=== PATIENT | female | born 1970 | race Caucasian/White ===

== ENCOUNTER 2017-09-16 16:14 | Emergency (ER) | payer BC ==
[~2017-09-16] VITALS: Ht 162.6 cm; Wt 78.6 kg
[~2017-09-16 16:14] MED LIST: ASPIRIN325 MG PO; TRAMADOL HCL50 MG PO; ZANTAC75 M1 PO
[2017-09-16 16:55] LABS: HEMATOCRIT 38.2 % (36.0-46.0); HEMOGLOBIN 13.2 G/DL (11.9-15.5); MCH 31.9 PG (29.0-34.0); MCHC 34.6 G/DL (30.0-36.0); MCV 92.3 FL (83-99); RBC DIS.WIDTH-CV 12.4 % (11.8-14.6); RBC DIS.WIDTH-SD 42.2 % (39-53); RED BLOOD COUNT 4.14 M/uL (3.80-5.20); WHITE BLOOD COUNT 8.1 K/uL (4.1-10.2)
[2017-09-16 17:04] LABS: CHLORIDE 107 mEq/L (99-109); SODIUM 142 mEq/L (136-147)
[2017-09-16 17:06] LABS: GLUCOSE 89 mg/dL (70-99)
[2017-09-16 17:10] LABS: CREATININE 0.8 mg/dL (0.6-1.3); GFR ESTIMATE (CALCULATED) > 59 mL/min/
[2017-09-16 17:11] LABS: UREA NITROGEN (BUN) 11 mg/dL (9-23)
[2017-09-16 17:16] LABS: TROP-I INTERPRETATION NEGATIVE; TROPONIN-I < 0.01 ng/mL (0.0-0.30)
[2017-09-16 17:29] LABS: PLAT.SUFFICIENCY ADEQUATE; PLATELET COUNT 223 K/uL (156-360)
[2017-09-16 18:52] LABS: TOTAL BILIRUBIN 0.3 mg/dL (0.0-1.0)
[2017-09-16 18:53] LABS: ALKALINE PHOSPHATASE 113 IU/L (3-129)
[2017-09-16 18:56] LABS: ALT (GPT) 22 IU/L (3-49); AST (GOT) 17 IU/L (2-34); DIRECT BILIRUBIN 0.1 mg/dL (0.0-0.3)
[2017-09-16 18:57] LABS: LIPASE 12 U/L (1.0-51.0)
[2017-09-16] MEDS ORDERED: BENTYL20 MG PO (20:21)
[2017-09-16] MEDS ORDERED: ZOFRAN ODT8 MG PO (20:21)
[2017-09-16 20:48] VITALS: BP 123/73
== END 2017-09-16 20:50 | disposition home or self-care (01) ==
LOC: EME 16:14
DX: R10.11 Right upper quadrant pain (principal); R05 Cough; F17.200 Nicotine dependence, unspecified, uncomplicated
CPT/HCPCS: 71046; 76705; 80048; 80076; 83690; 84484; 85027; 93005; 99281; 99284; J1885